=== PATIENT | male | born 1960 | race Two or more races ===

== ENCOUNTER 2022-03-15 16:02 | Outpatient (CLI) | payer OTHER, SELFPAY ==
--- NOTE | ~2022-03-15 | CT_ITS ---
EXAMINATION: CT knee LT wo con DATE: 03/15/2022 16:45 INDICATION: Mechanical comp cases of implant at the left knee. TECHNIQUE: High resolution computed tomography (CT) of the left knee was performed without intravenou s contrast. Additional sagittal and coronal reconstructions were performed. Automated exposure contro l and iterative reconstruction technique were employed. The dose-length product was 521.74 mGy-cm. COMPARISON: None FINDINGS: Medial unicompartmental arthroplasty at the left knee. There is no periprosthetic lucency to suggest loosening . No fracture.. There appears to be residual articulation between osteophytes along the lat eral margin of the anterior weightbearing medial femoral condyle at the intercondylar notch and anter omedial aspect of the intercondylar eminence, both of these articular surfaces with associated margin al osteophytes. Osteoarthritis at the lateral compartment with additional severe narrowing of the spa ce between the medial margin of the anterior weightbearing lateral femoral condyle and the lateral ma rgin of the intercondylar eminence. 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 Moder ate-sized knee joint effusion. IMPRESSION: 1. Left knee unicompartmental arthroplasty with regions of moderate to severe joint space narrowing a long portions of each compartment as detailed above. No fracture or evident loosening of the arthropl asty components. 2. Moderate-sized left knee joint effusion. Reviewed, dictated and finalized at location A. E REPORT DEVELOPER IMPRESSION: 1. Left knee unicompartmental arthroplasty with regions of moderate to severe j oint space narrowing along portions of each compartment as detailed above. No f racture or evident loosening of the arthroplasty components. 2. Moderate-sized left knee joint effusion.
== END 2022-03-15 16:03 | disposition home or self-care (01) ==
PROVIDERS: PCP Internal Medicine; Visit Provider Orthopaedic Surgery
DX: T85.698A Other mechanical complication of other specified internal prosthetic devices, implants and grafts, initial encounter (principal); M25.462 Effusion, left knee
CPT/HCPCS: 73700

== ENCOUNTER 2022-03-17 07:51 | Outpatient (CLI) | payer OTHER, SELFPAY ==
--- NOTE | ~2022-03-17 | NM_ITS ---
EXAMINATION: NM bone 3 phase DATE: 03/17/2022 11:42 INDICATION: Mechanical comp cases of implant at the left knee TECHNIQUE: 24.3 mCi Tc-99m HDP by intravenous route. Scintigrams of the bilateral knees were obtaine d in angiographic, blood pool, and delayed phases. COMPARISON: Left knee CT dated 03/15/2022 FINDINGS: Symmetric distribution of activity in both knees on the angiographic phase with no focal hyperemia to suggest inflammation either the setting of fracture or infection. There is a subtle photopenic defec t at the medial compartment of the left knee corresponding to a unicompartmental arthroplasty as seen on CT imaging. There is increased uptake at the medial compartment of the right knee and at the medi al and patellofemoral compartment of the left knee. IMPRESSION: 1. Increased uptake in all 3 compartments of the left knee including associated with the medial unic ompartmental arthroplasty. Although differential would include loosening does not appear to be associ ated periprosthetic lucency on the CT images to suggest this and there do appear to be regions of cyn sely articulating bone along the margins of the arthroplasty which suggests as in the other compartme nts is most likely degenerative in etiology. Reviewed, dictated and finalized at location A. PRIVATE DUTY IMPRESSION: 1. Increased uptake in all 3 compartments of the left knee including associate d with the medial unicompartmental arthroplasty. Although differential would in clude loosening does not appear to be associated periprosthetic lucency on the CT images to suggest this and there do appear to be regions of closely articula ting bone along the margins of the arthroplasty which suggests as in the other compartments is most likely degenerative in etiology.
== END 2022-03-17 07:52 | disposition home or self-care (01) ==
LOC: ANHIMG 07:54
PROVIDERS: PCP Internal Medicine; Visit Provider Orthopaedic Surgery
DX: T85.698A Other mechanical complication of other specified internal prosthetic devices, implants and grafts, initial encounter (principal); T84.039A Mechanical loosening of unspecified internal prosthetic joint, initial encounter
CPT/HCPCS: 78315; A9561

== ENCOUNTER 2022-04-12 10:50 | Outpatient (CLI) | payer OTHER, SELFPAY ==
--- NOTE | ~2022-04-12 | US_ITS ---
EXAMINATION: US knee asp inj w image LT DATE: 04/12/2022 13:55 INDICATION: Left knee fluid TECHNIQUE: The procedure including the risks and benefits was discussed with the patient. Risks discu ssed included bleeding and infection. The patient understood the risks and agreed to proceed. The sk in overlying the suprapatellar pouch of the left knee was prepped and draped in usual sterile fashion . Anesthetic was administered with 1% lidocaine subcutaneously. An 18 gauge spinal needle was advan gladis under continuous ultrasound observation into the suprapatellar pouch of the left knee. The inner stylette was removed and fluid was aspirated. The needle was removed and the entry site was cleaned and dressed. Post procedure ultrasound demonstrated no hemorrhage. FINDINGS: Ultrasound images demonstrate a moderate amount of fluid in the left suprapatellar pouch an d the needle advanced into the fluid collection. IMPRESSION: 1. Successful Ultrasound-guided left knee joint aspiration yielding 35 mm of initially clear yellowis h and progressively more cloudy reddish-yellow fluid. Reviewed, dictated and finalized at location A. SPECIALIST IMPRESSION: 1. Successful Ultrasound-guided left knee joint aspiration yielding 35 mm of in itially clear yellowish and progressively more cloudy reddish-yellow fluid.
[2022-04-12 17:33] LABS: Appearance Synovial Fluid Bloody (Clear); Color Synovial Fluid Red (Colorless); Source Synovial Fluid Synovial fluid
[2022-04-12 17:36] LABS: Lymphocytes Synovial Fluid 61 %; Monocytes Synovial Fluid 39 %
== END 2022-04-12 10:51 | disposition home or self-care (01) ==
PROVIDERS: PCP Internal Medicine; Visit Provider Orthopaedic Surgery
DX: T84.033A Mechanical loosening of internal left knee prosthetic joint, initial encounter (principal)
CPT/HCPCS: 20611; 87070; 87075; 87205; 89051

== ENCOUNTER 2022-04-19 09:31 | Outpatient (CLI) | payer OTHER, SELFPAY ==
--- NOTE | ~2022-04-19 | US_ITS ---
Renal-Bladder ultrasound Clinical History: Hypertension Technique: Real-time sonographic imaging of the kidneys and urinary bladder was performed. Findings: The right kidney measures 10.7 cm in length and the left kidney measures 11.9 cm. There is no hydronephrosis or definite renal calculus identified. Renal cortical echogenicity is within normal limits. No solid renal mass lesion is identified. The urinary bladder is moderately distended at the time of this exam. No intraluminal echoes are iden tified. No abnormal wall thickening is seen. Prostate gland probably enlarged. Impression: Unremarkable ultrasound of the kidneys and urinary bladder. Probable enlarged prostate gland. Reviewed, dictated and finalized at location . SER HAND Impression: Unremarkable ultrasound of the kidneys and urinary bladder. Probable enlarged prostate gland.
== END 2022-04-19 09:32 | disposition home or self-care (01) ==
LOC: ANHIMG 09:33
PROVIDERS: PCP Internal Medicine; Visit Provider Internal Medicine
DX: I10 Essential (primary) hypertension (principal)
CPT/HCPCS: 76775

== ENCOUNTER 2022-06-05 11:49 | Outpatient (CLI) | payer OTHER, SELFPAY ==
--- NOTE | 2022-06-05 12:44 | ECG_ITS ---
Measurements Intervals [place] Rate: 63 P: 47 HI: 141 QRS: 11 QRSD: 104 T: 6 QT: 394 QTc: 405 Interpretive Statements SINUS RHYTHM POSSIBLE LEFT ATRIAL ENLARGEMENT [-0.1mV P WAVE IN V1/V2] POSSIBLE LEFT VENTRICULAR HYPERTROPHY [VOLTAGE CRITERIA PLUS LAE OR QRS WIDENING] NONSPECIFIC ST changes NO PREVIOUS ECG AVAILABLE FOR COMPARISON Electronically Signed On 06-06-2022 11:21:50 FOREST AIDE by Sandra Buck M.D.
[2022-06-05 14:41] LABS: Basophils Percent Auto 0.6 % (0.2-1.2); Eosinophils Absolute Auto 0.2 K/mm3 (0-0.3); Eosinophils Percent Auto 2.5 % (0-4.4); Hematocrit 41.4 % (42.0-52.0); Hemoglobin 13.6 g/dL (14.0-18.0); Immature Granulocyte Absolute 0.02 K/mm3 (0.00-0.031); Immature Granulocyte Percent A 0.3 % (0-0.5); Lymphocytes Absolute Auto 2.64 K/mm3 (0.9-3.2); Lymphocytes Percent Auto 38.9 % (18.3-44.2); Mean Corpuscular HGB Conc 32.9 g/dl (32-36); Mean Corpuscular Hemoglobin 28.6 pg (26-34); Mean Corpuscular Volume 87.2 fl (80-100); Mean Platelet Volume 10.2 fl (7.4-10.4); Monocytes Absolute Auto 0.4 K/mm3 (0.1-0.6); Monocytes Percent Auto 6.3 % (2.6-8.5); Neutrophils Absolute Auto 3.5 K/mm3 (1.3-6.7); Neutrophils Percent Auto 51.4 % (45.5-73.1); Platelet Count Result 257 k/mm3 (150-375); Red Blood Count 4.75 M/mm3 (4.6-6.20); White Blood Count 6.8 K/mm3 (4.5-10.0)
[2022-06-05 14:53] LABS: Albumin Level 4.3 g/dL (3.5-5.1)
[2022-06-05 14:55] LABS: Anion Gap 6 mmol/L (8-16); Blood Urea Nitrogen 14 mg/dL (9-20); Calcium 8.4 mg/dL (8.4-10.2); Carbon Dioxide 32 mmol/L (22-30); Chloride 102 mmol/L (98-107); Estimated Glomerular Filt Rate > 60; Glucose 92 mg/dL (65-110); Potassium 3.1 mmol/L (3.4-5.0); Sodium 140 mmol/L (137-145)
[2022-06-05 15:13] LABS: Urine Cotinine NEGATIVE
[2022-06-05 18:29] LABS: Hemoglobin A1C 5.9 % (<5.7)
== END 2022-06-05 11:50 | disposition home or self-care (01) ==
LOC: ANHSURGERY 11:53
PROVIDERS: Anesthesiology; PCP Internal Medicine; Visit Provider Orthopaedic Surgery
DX: T84.018A Broken internal joint prosthesis, other site, initial encounter (principal); Z79.899 Other long term (current) drug therapy; Z01.818 Encounter for other preprocedural examination
CPT/HCPCS: 80048; 80307; 82040; 83036; 85025; 86850; 86900; 86901; 87081; 93005

== ENCOUNTER 2022-06-14 02:00 | Day surgery (SDC) | payer OTHER, SELFPAY ==
--- NOTE | 2022-06-05 11:58 | PC.NURSE ---
PRE-OP INSTRUCTIONS, PLEASE READ CAREFULLY Report to the Outpatient Waiting Room, entrance under the green pavilion located off [facility], at time _0600_ on date _06/14/22_. Planned Procedure Time: _0730_. PACK A SMALL OVERNIGHT BAG AND LEAVE IN THE CAR ALONG WITH YOUR WALKER Time changes happen often and if your time is changed the preop area will call you the afternoon before. - You and your visitor will be asked to self-screen and do not enter if you have any COVID symptoms. - Only one visitor is requested with a max of two and NO children visitors are allowed at this time. - The patient visitor may be requested to leave or wait in car when not with patient due to distancing restrictions. - A mask is optional within the hospital at this time. -VISITING HOURS 8AM-8PM Patients may have clear liquids (water, carbonated beverages, clear teas, apple juice) until 3 hours prior to surgery (0430 AM) with a maximum of 20 ounces. - No food from midnight until time of surgery Take the following medications with a SIP of water the morning of surgery: _AMLODIPINE, NEBIVOLOL_ DO NOT STOP ANY OF YOUR OTHER PRESCRIPTION MEDICATIONS PRIOR TO SURGERY ?EXCEPT THE FOLLOWING Medications to discontinue per physician __NONE__, Date to take last dose Please no make-up, nail amharic, hairspray, perfume, deodorant, or body powder the day of surgery. No jewelry (including any body piercings) or valuables the day of surgery, leave them at home. Please take a shower or bath the night before, or the morning of, surgery with an antibacterial soap. Wear comfortable, loose fitting clothing. - Jewelry must be removed prior to entering the operating room. Rings and piercings that are not removed may be cut off. - The hospital will not accept responsibility for valuables. - Please leave all valuables, including medications, at home the day of surgery. If you are going home after surgery, a licensed power truck driver must drive you home. - NO public transportation without another adult if you receive anesthesia. - We recommend that an adult stay with you for 24 hours following discharge. - We also recommend that you do not drive, make important decision, drink alcoholic beverages, or take any drugs that were not prescribed by your health care provider for at least 24 hours after your discharge time. Follow any additional instructions given to you from your surgeon. If you or anyone in your household have experienced Covid symptoms in the past week, please notify your surgeon or the nurse liaison at the phone number below for possible testing. Instructions given to _PATIENT_and asked if any additional questions and then verbalized understanding. Patient advised to call surgeon office or pre surgery nurse liaison [phone] if any additional questions.
[2022-06-05 12:14] VITALS: BP 186/82; PULSE 64; RESP 20; TEMP 37; O2SAT 100; BMI 32.0
--- NOTE | 2022-06-09 14:56 | PM.IMHP ---
H&P: HPI History of Present Illness Date/Time: 06/09/22 14:56 Chief Complaint: The patient is a 62-year-old male sees Dr. Downey regarding his left knee. 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 The patient suffered an injury to the left tibia which required unicompartmental knee arthroplasty after developing osteoarthritis. Over time the patient has developed increasingly worsening pain and dysfunction. Denies any new trauma or injury no erythema heat no effusion no fevers chills night sweats no evidence infection. Workup for infection has been negative recently. X-rays at this time show subsidence of the tibial portion of the prosthesis the patient has aching pain here medially worse with activity mildly relieved by rest. Despite conservative measures on his own including ice activity modification and anti-inflammatories symptoms continue. The patient clearly has failure the implant and has increasingly worsening varus deformity and inability to stand or walk for long periods. At this point the patient has discussed further treatment options in detail with Dr. Downey he would like to proceed with revision to a total knee arthroplasty of his left knee. Review of Systems Review of Systems: Ten point review of systems otherwise negative [facility] Past Medical History Medical History Essential hypertension Mixed hyperlipidemia Seizure disorder Family History Family History Mother Hypertension Father Hypertension Social History Social History Smoking status: Never smoker Second hand tobacco smoke exposure: No Additional smoking assessment comments: PT DENIES ALL FORMS OF TOBACCO USE Alcohol intake: never Substance use: never Substance use type: does not use Living arrangements: with family Spiritual care concerns: No Meds Home Medications and Allergies Home Medications Medication Instructions Recorded Confirmed Type nebivolol 5 mg tablet (Bystolic) 5 mg PO DAILY #90 tabs 08/16/20 06/05/22 Rx atorvastatin 20 mg tablet 20 mg PO DAILY #90 tabs 10/18/20 06/05/22 Rx lisinopril 20 1 tablet PO BID #180 tabs 10/19/20 06/05/22 Rx mg-hydrochlorothiazide 12.5 mg tablet amlodipine 10 mg tablet (Norvasc) 10 mg PO DAILY #30 tabs 01/04/23 02/13/23 Rx Allergies Allergy/AdvReac Type Severity Reaction Status Date / Time No Known Allergies Allergy Verified 06/05/22 12:12 Exam Narrative: on exam the patient is noted be a well-developed well-nourished male in no acute distress alert oriented x3. Normal mood and affect. He has noted be 5 ft 9 in tall 223 lb with a BMI of 32.9. Hearing and vision are intact. Respiratory is good no distress. Pulse regular rate and rhythm. Abdomen benign. Extremities show the patient's left knee be tender along the medial joint line with varus deformity. Range of motion is 5-110 degrees with some crepitation through the arc of motion. Knee cap tracks well knee joint appears to be otherwise stable strength is 5 5. There is no erythema heat no effusion no signs of infection. Neurovascular is intact. Skin is intact. X-rays are as above. Central nervous system within normal limits. Assessment and Plan Assessment and plan (1) Pain due to unicompartmental arthroplasty of knee: Code(s): T84.84XA - Pain due to internal orthopedic prosthetic devices, implants and grafts, initial encounter; Z96.659 - Presence of unspecified artificial knee joint Status: Acute Plan the patient has a painful, failed left unicompartmental arthroplasty of the left knee. The patient at this point has discussed risks benefits limitations and alternatives of surgery in great detail with Dr. Downey he has now reached proceed with he
[2022-06-14] VITALS (11 sets, daily range): BP systolic 157–190; BP diastolic 61–90; PULSE 73–91; RESP 15–20; TEMP 36.4–37.1; O2SAT 97–100
--- NOTE | ~2022-06-14 | XR_ITS ---
EXAMINATION: XR surgery orthopedic DATE: 06/14/2022 09:13 INDICATION: Intraoperative evaluation following left total knee arthroplasty. TECHNIQUE: 4 views of the left knee were obtained during revision left total knee arthroplasty. COMPARISON: CT dated 03/15/2022 FINDINGS: There are old healed diaphyseal fracture deformities of the left tibia and fibula. Initial images dem onstrate removal of the prior medial unicompartmental arthroplasty components and placement of new fe moral and tibial components for a total knee arthroplasty. There is approximately 7 degree valgus ang ulation of the tibia relative to the narrow stem of the tibial component. The tibial component is rep laced and appears in expected position on the final 2 images. On the initial 3 images the patella is rotated and displaced laterally but appears in expected position with change of patellar resurfacing. There is minimal hyperextension at the knee joint which remains within limits of normal ligamentous laxity on the final crosstable lateral image. No acute fractures identified. Expected intra-articular , intramedullary and subcutaneous gas. IMPRESSION: 1. Intraoperative images demonstrating revision of total knee arthroplasty as detailed above. See pro cedure note for further detail. Reviewed, dictated and finalized at location A. NE PHOTOGRAPHER IMPRESSION: 1. Intraoperative images demonstrating revision of total knee arthroplasty as d etailed above. See procedure note for further detail.
--- NOTE | ~2022-06-14 | XR_ITS ---
EXAMINATION: [id number] DATE: 06/14/2022 10:23 INDICATION: Postoperative evaluation following left total knee arthroplasty. TECHNIQUE: Anteroposterior and lateral views of the left knee were obtained. COMPARISON: Intraoperative images on 06/14/2022 FINDINGS: Interval completion with cementing of the left total knee arthroplasty with patellar resurfacing quyen mao appears well seated and in near anatomic alignment. No fractures identified. Expected postoperativ e subcutaneous and intra-articular gas. IMPRESSION: 1. Left total knee arthroplasty, negative for postoperative purposes. Reviewed, dictated and finalized at location A. ORTER
--- NOTE | 2022-06-14 06:37 | WPDANESEPPF ---
Anes - Initial Pre Proc Eval Procedure: Operation Date: 06/14/22 07:30 Proposed Procedures p Revision Left Total Knee Arthroplasty - Wilver Downey MD Date/Time: 06/14/22 06:37 Surgeon: Wilver Downey MD Pre Op Diagnosis: failed left partial knee arthroplasty Patient Data Age: 62 Gender: M Height: 1.78 m Weight: 101.3 kg Last Vital Signs Temp 37.0 C 06/05/22 12:14 Pulse 64 06/05/22 12:14 Resp 20 06/05/22 12:14 BP 186/82 H 06/05/22 12:14 Pulse Ox 100 06/05/22 12:14 O2 Del Method Room Air 06/05/22 12:14 Allergies Allergy/AdvReac Type Severity Reaction Status Date / Time No Known Allergies Allergy Verified 06/05/22 12:12 Home Medications Medication Instructions Recorded Confirmed Type nebivolol 5 mg tablet (Bystolic) 5 mg PO DAILY #90 tabs 08/16/20 06/14/22 Rx atorvastatin 20 mg tablet 20 mg PO DAILY #90 tabs 10/18/20 06/14/22 Rx lisinopril 20 1 tablet PO BID #180 tabs 10/19/20 06/14/22 Rx mg-hydrochlorothiazide 12.5 mg tablet amlodipine 10 mg tablet (Norvasc) 10 mg PO DAILY #30 tabs 04/26/22 06/14/22 Rx Patient hx anesthesia problems: none Family hx anesthesia problems: none Results Review: All pre-operative results and documents have been reviewed as part of the pre-operative evaluation. [facility] Past Medical History Medical History Essential hypertension Mixed hyperlipidemia Seizure disorder Surgical History Surgical History History of knee surgery Family History Family History Mother Hypertension Father Hypertension Social History Social History Smoking status: Never smoker Second hand tobacco smoke exposure: No Additional smoking assessment comments: PT DENIES ALL FORMS OF TOBACCO USE Alcohol intake: never Substance use: never Substance use type: does not use Living arrangements: with family Spiritual care concerns: No Anes - Eval Final PreProcedure Day of Procedure 06/14/22 06:37 Patient weight: obese Heart: regular rate and rhythm Lungs: clear to auscultation Airway: Mallampati scale class II Neurological: alert and oriented Last oral intake: >/= 8 hours ASA classification: III Emergent: no Anesthetic plan: proceed Anesthesia type and monitoring: general LMA and standard monitoring Results Review: All pre-operative results and documents have been reviewed as part of the pre-operative evaluation. Informed Consent: The patient's anesthetic plan and its attendant risks and benefits were discussed with the patient/family/POA. Questions were solicited and answers provided to the satisfaction of the patient/family/POA.
[2022-06-14] MEDS: ACETAMINOPHEN 500 MG TABLET 1000 MG PO (06:53)
--- NOTE | 2022-06-14 06:54 | WPDHPUPDATE1 ---
History and Physical Update Update Date/Time: 06/14/22 06:54 History and Physical has been reviewed, including an updated exam of the patient. There are NO changes in the patient's condition. Risks, benefits, and alternatives have been discussed and questions answered. Patient agrees to proceed with procedure.
[2022-06-14] MEDS: TRANEXAMIC ACID 1,000MG/ISO100 1,000 MG/100 ML BAG 200 MG IVPB (06:55)
[2022-06-14] MEDS: LACTATED RINGERS 1,000 ML 30 ML IV CONT ×2 (06:55→10:09)
--- NOTE | 2022-06-14 07:21 | WPDANESPNB ---
Anes - Peripheral Nerve Block Date/Time: 06/14/22 07:21 I have discussed with the patient/family/POA the placement of a peripheral nerve block for post-operative pain management, including associated risks, benefits, complications, and side effects. Alternative methods of post-operative analgesia were detailed. Questions were solicited and answers provided to the satisfaction of the patient/family/POA. Time-Out: A pre-procedural Time-Out was completed immediately before starting the procedure and confirmed: Patient Identification, Site, Procedure, Patient Position and the Availability of Requisite Equipment. Clinical Indications: Acute post-operative pain management requested by the operative surgeon. Nerve Block Insertion Note Anes-nerve block: femoral left Patient position: supine Skin prep: chlorhexidine Needle: 22 gauge, stimulating, insulated echogenic needle. Needle length: 50 mm Technique: nerve stimulation lost at (mA) (0.35) Injectate: bupivacaine 0.5% with epi 5 mcg/ml (no epi) Observations: tolerated well Complications: none Procedure start time:: 714 Procedure end time:: 718
[2022-06-14] MEDS: ceFAZolin 2 GM/D5W 50 ML 2 GM/50 ML BAG IVPB ×3 (07:23→23:10)
[2022-06-14] MEDS: ceFAZolin SODIUM 1 GM VIAL 2 GM IV PUSH (09:25)
[2022-06-14] MEDS: GENTAMICIN BONE CEMENT REFOBACIN 1 EACH TOPICAL (09:34)
--- NOTE | 2022-06-14 09:38 | W.PM.PROC2 ---
Procedure Note - Detailed Date of Procedure 06/14/22 Pre-op Diagnosis failed left partial knee arthroplasty Post-op Diagnosis Same Procedure Performed Revision Total Left Knee Surgeon Wilver Downey MD Commercial Airplane Pilot Dominick Ayala Anesthesia General Description of Procedure The patient was brought to the operating room. General anesthetic was administered. Placed on the operating table and sterilely prepped and draped in usual manner. A longitudinal incision was made. Tourniquet inflated to 300 mmHg for a total of [95] minutes. Dissection carried down to the fascia. Medial parapatellar incision was made and the patella subluxated laterally. Patella cut from [27] to [17] mm and sized for a [34] mm button. The tibia cut perpendicular to the long axis, removing the tibial component. This left a bit of a hole medially. The femur cut in 5 degrees of valgus, removing the femroal component. A [70] femur trialed. [75] tibia was felt to fit the best. The soft tissue balanced, hemostasis obtained. All [address], [75] tibia, with a 40 mm Stem and 5mm medial wedge. A [70] femur, [34] mm patella, and [14] mm poly. Motion was 0-125 degrees with good stablility in flexion and extension. The wound was closed with #2 vicryl, 2-0 Vicryl and john. Implants [employer] Femur 70mm Tibia 75mm, 40 mm stem, 5mm medial wedge Estimated Blood Loss 200 Drains No Packing No Pathology None sent Complications No immediate complications Condition Stable Disposition PACU
[2022-06-14] MEDS: fentaNYL CITRATE INJ (*CRX) 100 MCG/2 ML VIAL 25 MCG IV PUSH ×6 (10:27→11:18)
--- NOTE | 2022-06-14 10:37 | SUR.PHASEI ---
[address] foy of bp 180/80, pt came in a little higher in pre-op, took some bp meds this morning. not going to treat at this time, pt will be going to floor and will resume the rest of his home meds.
--- NOTE | 2022-06-14 11:35 | ADMGEN ---
This patient, Hilario Terrazas, was admitted to Medical Room 249-01. Patient/family oriented to hospital policies and general routines including ID bracelet, bed and alarms, visiting hours, pain management, procedures, bathroom and other care routines, personal items, smoking policy, room service/diet, and visiting hours. Information on how to activate the Rapid Response Team has been discussed. Patient/Family are encouraged to report perceived risks to care and to ask questions if they do not understand what they are told or what they should do.
[2022-06-14] MEDS: HYDROcodone/acetaminophen (*CRX) 5-325 MG TABLET 1 TAB PO ×2 (13:52→23:10)
[2022-06-14] MEDS: CYCLOBENZAPRINE HCL 10 MG TABLET PO (13:52)
[2022-06-14] MEDS: SODIUM CHLORIDE 0.9% IV 1,000 ML 125 ML IV CONT (13:53)
[2022-06-14] MEDS: ONDANSETRON INJ 4 MG/2 ML VIAL IV PUSH (13:53)
--- NOTE | 2022-06-14 15:08 | P.OPB_ITS ---
Procedure Note - Brief Procedure Note - Brief Date of procedure: 06/14/22 Pre-op diagnosis: failed left partial knee arthroplasty Postop diagnosis same status post revision left total knee arthroplasty. Procedure performed: Revision left total knee arthroplasty. Description of procedure: On June 14, 2022 the patient was taken the operating room I entered the operating room at approximately 7:30 a.m.. An assisted with positioning the patient on operating table placement of a tourniquet with a sterile prep and drape of the patient's left lower extremity once anesthesia was underway. Dr. Downey then entered the room to commence with the procedure during the operation I assisted with wound retraction hemostasis with suction Bovie positioning of the left lower extremity and implant placement and cement removal once the procedure was completed. Once Dr. Downey finished his portion I then irrigated the wound thoroughly the superficial layers followed by placement of Surgicel powder and use of Bovie cautery to obtain final hemostasis. I then proceeded with closure of the deep capsule the knee with 2. Vicryl 2. Quill type suture. I then again irrigated the superficial layers of the wound followed by closure of the fatty layer and the skin with 2-0 Vicryl and 2 type Quill suture with john to close the surface of the skin. I then applied a sterile dressing. I then assisted with transfer the patient from the operating table to the stretcher for transport to the recovery room patient was in good condition without intraoperative complication. I exited the room at 10:00 a.m.. Total bl ood loss was about 150 cc Surgeon: Surgeon Wilver Downey MD 1st assistant manager airside operations Dominick Ayala PA-c
[2022-06-14] MEDS: RIVAROXABAN 10 MG TABLET PO (16:47)
[2022-06-14] MEDS: CELECOXIB 200 MG CAPSULE PO (16:47)
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
[2022-06-14] MEDS: SENNA/DOCUSATE SODIUM TABLET 2 TAB PO (20:45)
[2022-06-15] VITALS: BP 165/60; PULSE 86; RESP 17; TEMP 36.9; O2SAT 100
[2022-06-15 03:27] VITALS: BP 163/59; PULSE 88; RESP 18; TEMP 37.1; O2SAT 100
[2022-06-15] MEDS: ceFAZolin 2 GM/D5W 50 ML 2 GM/50 ML BAG IVPB (06:00)
[2022-06-15 06:03] LABS: Basophils Percent Auto 0.1 % (0.2-1.2); Eosinophils Percent Auto 0.2 % (0-4.4); Hematocrit 29.2 % (42.0-52.0); Hemoglobin 9.7 g/dL (14.0-18.0); Immature Granulocyte Absolute 0.03 K/mm3 (0.00-0.031); Immature Granulocyte Percent A 0.3 % (0-0.5); Lymphocytes Absolute Auto 1.69 K/mm3 (0.9-3.2); Lymphocytes Percent Auto 17.7 % (18.3-44.2); Mean Corpuscular HGB Conc 33.2 g/dl (32-36); Mean Corpuscular Hemoglobin 28.8 pg (26-34); Mean Corpuscular Volume 86.6 fl (80-100); Mean Platelet Volume 10.2 fl (7.4-10.4); Monocytes Absolute Auto 1.2 K/mm3 (0.1-0.6); Monocytes Percent Auto 12.8 % (2.6-8.5); Neutrophils Absolute Auto 6.6 K/mm3 (1.3-6.7); Neutrophils Percent Auto 68.9 % (45.5-73.1); Platelet Count Result 204 k/mm3 (150-375); Red Blood Count 3.37 M/mm3 (4.6-6.20); White Blood Count 9.5 K/mm3 (4.5-10.0)
[2022-06-15] MEDS: HYDROcodone/acetaminophen (*CRX) 5-325 MG TABLET 1 TAB PO (06:12)
[2022-06-15 06:19] LABS: Anion Gap 5 mmol/L (8-16); Blood Urea Nitrogen 20 mg/dL (9-20); Calcium 7.3 mg/dL (8.4-10.2); Carbon Dioxide 27 mmol/L (22-30); Chloride 101 mmol/L (98-107); Estimated CRCL calculation 57 ml/min; Estimated Glomerular Filt Rate > 60; Glucose 146 mg/dL (65-110); Potassium 3.3 mmol/L (3.4-5.0); Sodium 133 mmol/L (137-145)
--- NOTE | 2022-06-15 08:02 | PM.IMPN ---
Progress Note: A&P Assessment and Plan (1) S/P total knee arthroplasty: Code(s): Z96.659 - Presence of unspecified artificial knee joint Status: Acute Assessment and Plan: Postop day 1 from left knee arthroplasty, management per surgery team On Xarelto at home, currently being held Monitor hemoglobin daily, 13.6 preop, 9.7 postop Would recheck a CBC in 1 week (2) Essential hypertension: Code(s): I10 - Essential (primary) hypertension Status: Acute Assessment and Plan: Continue home medications, hydralazine as needed, suspect systolic elevated blood pressure is due to pain (3) Mixed hyperlipidemia: Code(s): E78.2 - Mixed hyperlipidemia Status: Acute Assessment and Plan: Continue home statin, check fasting lipid panel tomorrow (4) Peripheral neuropathy: Code(s): G62.9 - Polyneuropathy, unspecified Status: Acute Assessment and Plan: Appears to be on no medications at home, receiving Flexeril and oxycodone here as well as Celebrex (5) Seizure disorder: Code(s): G40.909 - Epilepsy, unspecified, not intractable, without status epilepticus Status: Acute Assessment and Plan: Distant past, no recent seizures, monitor off AEDs Plan DVT prophylaxis with SCDs, Xarelto at discharge GI prophylaxis not indicated Code status full code Subjective Date/time seen: 06/15/22 08:02 Interval history: No overnight events noted. No chest pain or shortness of breath. No nausea, vomiting or diarrhea. No fevers or chills. Some little swelling of the left knee with some blood. Had a bowel movement this morning, good p.o. intake. Worked well with OT, eager to go home. Review of Systems Review of Systems: 12 point review of systems was assessed and was negative except as noted in the HPI Exam Narrative: General: No acute distress, alert and oriented per baseline HEENT: Atraumatic, normocephalic, mucous membranes moist CV: Regular rate and rhythm, S1, S2 Lungs: Clear to auscultation bilaterally, no rales or crackles noted, no wheezes, good air entry Abdomen: Soft, nontender, nondistended Extremities: Normal to inspection, left knee wrapped, some blood noted on the bandage, effusion, no erythema Skin: No rashes noted, no lesions or wounds seen Psych: Euthymic, normal affect Objective Data Vital Signs Vital Signs: Vital Signs - 24 hr 06/14/22 10:15 06/14/22 10:30 06/14/22 10:45 Temperature 97.5 F L Pulse Rate 89 76 75 Respiratory Rate 15 20 20 Blood Pressure 181/90 H 181/84 H 185/81 H Pulse Oximetry 100 100 100 Oxygen Delivery Simple Face Mask Simple Face Mask Simple Face Mask Oxygen Flow Rate 8 8 8 06/14/22 11:00 06/14/22 11:15 06/14/22 11:35 Temperature Pulse Rate 77 77 Respiratory Rate 15 20 20 Blood Pressure 162/80 H 162/73 H Pulse Oximetry 99 97 98 Oxygen Delivery Room Air Room Air Room Air Oxygen Flow Rate 06/14/22 11:57 06/14/22 13:23 06/14/22 13:06 Temperature 98.5 F 98.5 F Pulse Rate 77 78 Respiratory Rate 18 Blood Pressure 159/62 H 167/78 H Pulse Oximetry 98 100 Oxygen Delivery Room Air Oxygen Flow Rate 06/14/22 15:29 06/14/22 21:34 06/14/22 20:00 Temperature 98.8 F 98.4 F Pulse Rate 73 91 Respiratory Rate 18 17 Blood Pressure 157/72 H 162/61 H Pulse Oximetry 100 100 Oxygen Delivery Room Air Oxygen Flow Rate 06/15/22 00:00 06/15/22 03:27 Temperature 98.5 F 98.7 F Pulse Rate 86 88 Respiratory Rate 17 18 Blood Pressure 165/60 H 163/59 H Pulse Oximetry 100 100 Oxygen Delivery Oxygen Flow Rate Intake/Output Intake/Output: Intake & Output 06/12/22 06/13/22 06/14/22 06/15/22 23:59 23:59 23:59 23:59 Intake Total 2750 600 Output Total 800 300 Balance 1950 300 Meds/Results Medications: Active Medications Generic Name Dose Route Start Last Admin Trade Name Freq PRN Reason Stop Dose Admin Hydroc
[2022-06-15] MEDS: CELECOXIB 200 MG CAPSULE PO (09:48)
[2022-06-15] MEDS: ATORVASTATIN 20 MG TABLET PO (09:48)
[2022-06-15] MEDS: SENNA/DOCUSATE SODIUM TABLET 2 TAB PO (09:48)
[2022-06-15] MEDS: amLODIPine BESYLATE 5 MG TABLET 10 MG PO (09:49)
[2022-06-15] MEDS: lisinopriL 20 MG TABLET PO (09:49)
[2022-06-15 09:50] VITALS: PULSE 93
[2022-06-15] MEDS: NEBIVOLOL HCL 5 MG TABLET PO (09:50)
[2022-06-15] MEDS: hydroCHLOROthiazide 12.5 MG CAPSULE PO (09:55)
[2022-06-15] MEDS: polyethylene glycoL 3350 17 GM POWD.PACK PO (09:55)
[2022-06-15] MEDS: HYDROcodone/acetaminophen (*CRX) 5-325 MG TABLET 2 TAB PO (10:05)
--- NOTE | 2022-06-15 10:22 | P.PNAN_ITS ---
Anes - Prog Note Post-Op Date/Time: 06/15/22 10:22 Cardiovascular status: normal Respiratory status: normal Airway patency: baseline Mental status: baseline Post-Op hydration status: normal Vital Signs: Last Vital Signs Temp 37.1 C 06/15/22 03:27 Pulse 93 06/15/22 09:50 Resp 18 06/15/22 03:27 BP 163/59 H 06/15/22 03:27 Pulse Ox 100 06/15/22 03:27 O2 Del Method Room Air 06/14/22 20:00 O2 Flow Rate 8 06/14/22 10:45 Pain Score (VAS): 0 I/O: Intake & Output 06/14/22 06/15/22 06/15/22 23:59 07:59 15:59 Intake Total 560 600 240 Output Total 800 300 Balance -240 300 240 Laboratory Tests 06/15/22 05:19 06/15/22 05:18 06/15/22 06/15/22 05:18 05:19 WBC 9.5 RBC 3.37 L Hgb 9.7 L D Hct 29.2 L MCV 86.6 MCH 28.8 MCHC 33.2 RDW 14.0 Plt Count 204 MPV 10.2 Immature Gran % (Auto) 0.3 Neut % (Auto) 68.9 Lymph % (Auto) 17.7 L [place] % (Auto) 12.8 H Eos % (Auto) 0.2 Baso % (Auto) 0.1 L Lymph # (Auto) 1.69 [place] # (Auto) 1.2 H Eos # (Auto) 0.0 Baso # (Auto) 0.0 Abs Immat Gran (auto) 0.03 Absolute Neuts (auto) 6.6 Absolute Nucleated RBC 0.0 Nucleated RBC % 0.0 Sodium 133 L Potassium 3.3 L Chloride 101 Carbon Dioxide 27 Anion Gap 5 L BUN 20 Creatinine 1.40 H Estim Creat Clear Calc 57 Estimated GFR > 60 Glucose 146 H Calcium 7.3 L Microbiology 06/14/22 07:54 Knee Left Gram Stain - Final Post-procedural complaints: none Patient Feedback: Patient satisfied with anesthetic care.
[2022-06-15 12:36] VITALS: BP 156/62; PULSE 85; RESP 18; TEMP 37; O2SAT 98
--- NOTE | 2022-06-15 12:50 | PM.PNORT ---
Progress Note: A&P Assessment and Plan (1) S/P total knee arthroplasty: Code(s): Z96.659 - Presence of unspecified artificial knee joint Status: Acute Plan postop day 1 patient is stable doing well will have physical therapy course this afternoon the discharge to home. Patient will follow-up as an outpatient with Dr. Downey in 2 weeks patient will call the office for any problems difficulties or questions see discharge orders. Subjective Subjective Date/Time Seen: 06/15/22 12:50 Patient is post op day #1 revision TKA, left kne. Having some post op pain but otherwise stable, no post op complications, not taking much pain med, refusing. Tolerating PT. Review of Systems Review of Systems: negative Exam Narrative: Vital signs stable afebrile neurovascular patient is intact wound is clean dry calves benign tolerating p.o. well, up in therapy Objective Data Vital Signs Vital Signs: Vital Signs - 24 hr 06/14/22 13:23 06/14/22 13:06 06/14/22 15:29 Temperature 36.9 C 37.1 C Pulse Rate 78 73 Respiratory Rate 18 18 Blood Pressure 167/78 H 157/72 H Pulse Oximetry 100 100 Oxygen Delivery Room Air 06/14/22 21:34 06/14/22 20:00 06/15/22 00:00 Temperature 36.9 C 36.9 C Pulse Rate 91 86 Respiratory Rate 17 17 Blood Pressure 162/61 H 165/60 H Pulse Oximetry 100 100 Oxygen Delivery Room Air 06/15/22 03:27 06/15/22 09:50 06/15/22 09:45 Temperature 37.1 C Pulse Rate 88 93 Respiratory Rate 18 Blood Pressure 163/59 H Pulse Oximetry 100 Oxygen Delivery Room Air 06/15/22 12:36 Temperature 37.0 C Pulse Rate 85 Respiratory Rate 18 Blood Pressure 156/62 H Pulse Oximetry 98 Oxygen Delivery Intake/Output Intake/Output: Intake & Output 06/12/22 06/13/22 06/14/22 06/15/22 23:59 23:59 23:59 23:59 Intake Total 2750 840 Output Total 800 300 Balance 1950 540 Meds/Results Medications: Active Medications Generic Name Dose Route Start Last Admin Trade Name Freq PRN Reason Stop Dose Admin Hydrocodone Bitart/Acetaminophen 1 tab 06/14/22 12:59 06/15/22 06:12 Hydrocodone/Acetaminophen (*Crx) 5-325 Mg Tablet PO 1 tab Q4H PRN Administration Pain Rated 4-6 Hydrocodone Bitart/Acetaminophen 2 tab 06/14/22 13:00 06/15/22 10:05 Hydrocodone/Acetaminophen (*Crx) 5-325 Mg Tablet PO 2 tab Q6H PRN Administration Pain Rated 7-10 Amlodipine Besylate 10 mg 06/15/22 09:00 06/15/22 09:49 Amlodipine Besylate 5 Mg Tablet PO 10 mg DAILY TEJAL Administration Atorvastatin Calcium 20 mg 06/15/22 09:00 06/15/22 09:48 Atorvastatin 20 Mg Tablet PO 20 mg DAILY TEJAL Administration Celecoxib 200 mg 06/14/22 17:00 06/15/22 09:48 Celecoxib 200 Mg Capsule PO 200 mg BID TEJAL Administration Cyclobenzaprine HCl 10 mg 06/14/22 12:55 06/14/22 13:52 Cyclobenzaprine Hcl 10 Mg Tablet PO 10 mg Q8HR PRN Administration spasms Diphenhydramine HCl 25 mg 06/14/22 12:56 Diphenhydramine Hcl Inj 50 Mg/Ml Vial IV PUSH Q6HR PRN Itching Hydralazine HCl 10 mg 06/15/22 11:09 Hydralazine Hcl 20 Mg/Ml Vial IV PUSH Q8H PRN Blood Pressure - High Hydrochlorothiazide 12.5 mg 06/15/22 09:00 06/15/22 09:55 Hydrochlorothiazide 12.5 Mg Capsule PO 12.5 mg DAILY TEJAL Administration Lisinopril 20 mg 06/15/22 09:00 06/15/22 09:49 Lisinopril 20 Mg Tablet PO 20 mg DAILY TEJAL Administration Naloxone HCl 0.1 mg 06/14/22 13:01 Naloxone Hcl 0.4 Mg/Ml Vial IV PUSH PRN PRN Opiate Reversal Nebivolol 5 mg 06/15/22 09:00 06/15/22 09:50 Nebivolol Hcl 5 Mg Tablet PO 5 mg DAILY TEJAL Administration Ondansetron HCl 4 mg 06/14/22 13:07 06/14/22 13:53 Ondansetron Inj 4 Mg/2 Ml Vial IV PUSH 4 mg Q4H PRN Administration Nausea And Vomiting Oxycodone HCl 2.5 mg 06/14/22 13:08 Oxycodone Hcl (*Crx) 2.5 Mg Tab Ir PO Q4H PRN Pain Rated 1-3 Polyethylene
--- NOTE | 2022-06-15 13:04 | PM.DS ---
DS: Admitting Diagnosis Discharge Date 06/15/2022 Admitting Diagnosis failed Uni arthroplasty left knee with left knee pain discharge diagnosis same status post revision to a total knee arthroplasty left knee. DS: Summary Hospital Course Hospital Course: Patient was taken the operating room on 06/14/2022 left Uni arthroplasty knee implant was removed and revised to a left total knee arthroplasty per Dr. Downey. Postop day 1 the patient was doing well having some postoperative pain but refusing pain medication for the most part was otherwise doing well up and therapy ambulating tolerating p.o. and activity well. Vital signs stable afebrile neurovascular is intact wound dressing clean and dry calves benign. Patient was deemed stable for discharge to home on 06/15/2022. The patient has a follow-up at 2 weeks postop for recheck call the office immediately for any further problems difficulties or questions. Time Spent with Patient Time attestation: Total time spent providing and/or coordinating discharge services: Exam Narrative: Vital signs stable afebrile neurovascularly intact wound dressing clean and dry calves benign ambulating in therapy tolerating p.o. well. Alert oriented x3. Normal mood and affect in no acute distress. DS: Data Data Completed and Pending Labs on day of discharge: Labs from last 24 hours 06/15/22 06/15/22 05:19 05:18 WBC 9.5 RBC 3.37 L Hgb 9.7 L D Hct 29.2 L MCV 86.6 MCH 28.8 MCHC 33.2 RDW 14.0 Plt Count 204 MPV 10.2 Immature Gran % (Auto) 0.3 Neut % (Auto) 68.9 Lymph % (Auto) 17.7 L [place] % (Auto) 12.8 H Eos % (Auto) 0.2 Baso % (Auto) 0.1 L Lymph # (Auto) 1.69 [place] # (Auto) 1.2 H Eos # (Auto) 0.0 Baso # (Auto) 0.0 Abs Immat Gran (auto) 0.03 Absolute Neuts (auto) 6.6 Absolute Nucleated RBC 0.0 Nucleated RBC % 0.0 Sodium 133 L Potassium 3.3 L Chloride 101 Carbon Dioxide 27 Anion Gap 5 L BUN 20 Creatinine 1.40 H Estim Creat Clear Calc 57 Estimated GFR > 60 Glucose 146 H Calcium 7.3 L Preliminary micro results at discharge 06/14/22 07:54 Anaerobic Culture - Preliminary Knee Left Procedures/Treatments: Revision left total knee arthroplasty Discharge Plan Discharge Patient Disposition: Home, Self-Care Discharge Instructions: patient discharged home general diet activity as tolerated weightbearing as tolerated left lower extremity with a walker at all times. Patient will keep the wound clean and dry change dressing daily call for any evidence of drainage or infection. He will start outpatient physical therapy early next week for total knee protocol. . The patient is be discharged on Xarelto 10 mg daily for total postop course of 2 weeks when this is complete he will go to aspirin 325 mg p.o. b.i.d. x1 month. He is also discharged with Moose 7.5 mg 1 tablet every 6 hours p.r.n. severe pain prescriptions were called into the pharmacy from our office. Patient will follow-up 2 weeks postop for staple removal and wound recheck he may resume home meds call for any further problems difficulties or questions. Stand Alone Forms: Avoid NSAIDs, General Discharge Instructions Discharge Medications: New Xarelto 10 mg Tablet 10 mg PO DAILY@1700 Qty: 12 0RF Continued Bystolic 5 mg tablet 5 mg PO DAILY Qty: 90 3RF atorvastatin 20 mg tablet 20 mg PO DAILY Qty: 90 3RF lisinopril-hydrochlorothiazide 20-12.5 mg tablet 1 tablet PO BID Qty: 180 3RF amlodipine [Norvasc] 10 mg tablet 10 mg PO DAILY Qty: 30 0RF Rx Instructions: LAST REFILL UNTIL SEEN
== END 2022-06-15 15:08 | disposition home or self-care (01) ==
LOC: ANHSURGERY 05:52 → ANH2MED 11:34
PROVIDERS: PCP Internal Medicine; Visit Provider Orthopaedic Surgery
PROC: (CPT 27487; principal; 2022-06-14 07:30)
DX: T84.84XA Pain due to internal orthopedic prosthetic devices, implants and grafts, initial encounter (principal); M17.12 Unilateral primary osteoarthritis, left knee; Y83.8 Other surgical procedures as the cause of abnormal reaction of the patient, or of later complication, without mention of misadventure at the time of the procedure; G89.18 Other acute postprocedural pain; I10 Essential (primary) hypertension; E78.2 Mixed hyperlipidemia; G40.909 Epilepsy, unspecified, not intractable, without status epilepticus; G62.9 Polyneuropathy, unspecified; E66.9 Obesity, unspecified; Z68.32 Body mass index [BMI] 32.0-32.9, adult
CPT/HCPCS: 27487; 64447; 36415; 73560; 80048; 85025; 87070; 87075; 87205; 97110; 97116; 97161; 97165; 97530; 97535; 99199; A9270; C1713; C9290; J0171; J0690; J1885; J2250; J2270; J2405; J2795; J3010; J3370; J7030; J7120

== ENCOUNTER 2023-09-07 07:37 | Outpatient (CLI) | payer OTHER, SELFPAY ==
--- NOTE | 2023-09-07 07:50 | ECHO_ITS ---
Patient Info Name: Hilario Terrazas Age: 63 years : 1960 Gender: Male Ht: 70 in Wt: 210 lbs BSA: 2.19 m2 HR: 66 bpm Technical Quality: Fair Exam Date: 09/07/2023 7:56 AM Exam Location: Echo Lab Patient Status: Outpatient Admit Date: 09/07/2023 Staff Ordering Physician: Dilan Johnson DO General Doc: Felipe Wood RDCS Attending Provider: Dilan Johnson DO Referring Physician: Alex FALL; Exam Type: CA echo doppler color flow Study Info Indications I10 - Essential (primary) hypertension Complete two-dimensional, color flow and Doppler transthoracic echocardiogram is performed. Summary 1. Complete two-dimensional, color flow and Doppler transthoracic echocardiogram is performed. 2. Left ventricular chamber dimension is normal. 3. Left ventricular systolic function is normal, estimated at 60-65%. 4. The left ventricular diastolic function is grade I diastolic dysfunction. 5. E/e' 8 is minimally elevated. 6. Left atrial chamber dimension is mildly enlarged. 7. There is mild aortic valve sclerosis. 8. There is trace mitral valve regurgitation. 9. There is trace tricuspid valve regurgitation. 10. No pulmonary hypertension, estimated pulmonary arterial systolic pressure is 30 mmHg. 11. There is mild pulmonic regurgitation. Left Ventricle E/e' 8 is minimally elevated. Left ventricular chamber dimension is normal. Left ventricular systolic function is normal, estimated at 60-65%. The left ventricular diastolic function is grade I diastolic dysfunction. Right Ventricle Right ventricular chamber dimension is normal. Right ventricular systolic function is normal and with normal TAPSE 2.8 cm. Left Atria Left atrial chamber dimension is mildly enlarged. Right Atria Right atrial chamber dimension is normal. Aortic Valve The aortic valve is trileaflet. There is mild aortic valve sclerosis. There is no aortic valve stenosis. There is no aortic valve regurgitation. Pulmonic Valve There is mild pulmonic regurgitation. Mitral Valve There is no mitral valve stenosis. There is trace mitral valve regurgitation. Tricuspid Valve There is trace tricuspid valve regurgitation. No pulmonary hypertension, estimated pulmonary arterial systolic pressure is 30 mmHg. Pericardium/Pleural There is no pericardial effusion. Inferior Vena Cava Normal inferior vena cava with >50% collapse upon inspiration consistent with normal right atrial pressure, 5 mmHg. Aorta The aortic root size at the sinus of Valsalva is normal. Left Ventricular Outflow Tract Name Value Normal LVOT 2D LVOT Diameter 2.0 cm LVOT Doppler LVOT Peak Velocity 117 cm/s LVOT Peak Gradient 5 mmHg LVOT Mean Gradient 3 mmHg LVOT VTI 25 cm LVOT VTI/AV VTI Ratio 0.9 LVOT Stroke Volume 79 ml LVOT CO 4.5 l/min LVOT CI 2.1 l/min/m2 Pulmonic Valve Name Value Normal
== END 2023-09-07 07:38 | disposition home or self-care (01) ==
PROVIDERS: PCP Internal Medicine; Visit Provider Internal Medicine
DX: I10 Essential (primary) hypertension (principal); I35.8 Other nonrheumatic aortic valve disorders; I37.1 Nonrheumatic pulmonary valve insufficiency
CPT/HCPCS: 93306

== ENCOUNTER 2024-01-22 02:18 | Day surgery (SDC) | payer OTHER, SELFPAY ==
[2023-12-31 10:26] VITALS: BMI 31.6
[2024-01-22 09:39] VITALS: BP 159/73; PULSE 105; RESP 18; TEMP 36.2; O2SAT 100; BMI 31.5
[2024-01-22] MEDS: LACTATED RINGERS 1,000 ML 30 ML IV CONT (09:58)
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
[2024-01-22 10:39] VITALS: BP 121/59; PULSE 53; RESP 19; O2SAT 100
[2024-01-22 10:49] VITALS: BP 152/72; PULSE 54; RESP 24; O2SAT 100
[2024-01-22 10:59] VITALS: BP 167/74; PULSE 53; RESP 24; O2SAT 100
== END 2024-01-22 11:10 | disposition home or self-care (01) ==
PROVIDERS: PCP Internal Medicine; Visit Provider Internal Medicine Gastroenterology
PROC: 0DJD8ZZ Inspection of Lower Intestinal Tract, Via Natural or Artificial Opening Endoscopic (ICD-10-PCS; CPT 45378; principal; 2024-01-22 11:00)
DX: Z12.11 Encounter for screening for malignant neoplasm of colon (principal); D12.3 Benign neoplasm of transverse colon; K64.8 Other hemorrhoids; I10 Essential (primary) hypertension; E78.2 Mixed hyperlipidemia; Z98.890 Other specified postprocedural states; Z86.0100 Personal history of colon polyps, unspecified
CPT/HCPCS: 45385; 88305; J2003; J2704; J7120

== ENCOUNTER 2024-04-10 08:34 | Outpatient (CLI) | payer OTHER, SELFPAY ==
[2024-04-10 12:34] LABS: Basophils Percent Auto 0.6 % (0.2-1.2); Eosinophils Absolute Auto 0.2 K/mm3 (0-0.3); Eosinophils Percent Auto 2.6 % (0-4.4); Hematocrit 41.2 % (42.0-52.0); Hemoglobin 13.5 g/dL (14.0-18.0); Immature Granulocyte Absolute 0.02 K/mm3 (0.00-0.031); Immature Granulocyte Percent A 0.3 % (0-0.5); Immature Reticulocyte Fraction 13.7 % (3.0-15.9); Lymphocytes Absolute Auto 2.57 K/mm3 (0.9-3.2); Mean Corpuscular HGB Conc 32.8 g/dl (32-36); Mean Corpuscular Hemoglobin 28.5 pg (26-34); Mean Corpuscular Volume 87.1 fl (80-100); Monocytes Absolute Auto 0.5 K/mm3 (0.1-0.6); Monocytes Percent Auto 7.3 % (2.6-8.5); Neutrophils Absolute Auto 3.6 K/mm3 (1.3-6.7); Neutrophils Percent Auto 52.2 % (45.5-73.1); Platelet Count Result 270 k/mm3 (150-375); Red Blood Count 4.73 M/mm3 (4.6-6.20); Red Cell Distribution Width 13.9 % (11.5-14.5); Reticulocyte Hemoglobin Conten 34.3 pg (28.2-36.6); Reticulocyte Percent 1.19 % (0.7-4.3); Reticulocytes Absolute 0.06 10^6/uL (0.02-0.10)
[2024-04-10 13:12] LABS: Alanine Aminotransferase 25 U/L (6-50); Albumin Level 3.5 g/dL (3.5-5.1); Alkaline Phosphatase 68 U/L (38-126); Anion Gap 2 mmol/L (4-12); Aspartate Amino Transferase 91 U/L (17-59); Bilirubin,Total 0.6 mg/dL (0.2-1.3); Blood Urea Nitrogen 13 mg/dL (9-20); Calcium 8.3 mg/dL (8.4-10.2); Carbon Dioxide 33 mmol/L (22-30); Chloride 105 mmol/L (98-107); Cholesterol 173 mg/dL (0-200); Estimated Glomerular Filt Rate > 60; Glucose 98 mg/dL (65-110); HDL Direct 41 mg/dL; Magnesium 2.3 mg/dL (1.6-2.3); Potassium 3.2 mmol/L (3.4-5.0); Sodium 140 mmol/L (137-145); Triglycerides 164 mg/dL (<150)
[2024-04-10 13:23] LABS: LDL Cholesterol Direct 95 mg/dL
[2024-04-10 13:56] LABS: Creatinine Urine 240.4 mg/dL
[2024-04-10 14:00] LABS: MALB Creatinine Ratio 28.3 mg/g (0-30); Microalbumin Urine Random 68.1 mg/L (0-16.7)
== END 2024-04-10 08:35 | disposition home or self-care (01) ==
LOC: ANHGOSHLAB 08:36
PROVIDERS: PCP Internal Medicine; Visit Provider Internal Medicine
DX: I10 Essential (primary) hypertension (principal); E78.2 Mixed hyperlipidemia; D64.9 Anemia, unspecified; E87.6 Hypokalemia
CPT/HCPCS: 36415; 80053; 80061; 82043; 83735; 85025; 85046

== ENCOUNTER 2025-04-06 07:54 | Outpatient (CLI) | payer OTHER, SELFPAY ==
[2025-04-06 11:52] LABS: Prostate Specific Antigen 2.6 ng/mL (< OR = 4.0)
== END 2025-04-06 07:55 | disposition home or self-care (01) ==
LOC: ANHGOSHLAB 07:55
PROVIDERS: PCP Internal Medicine; Visit Provider Internal Medicine
DX: Z12.5 Encounter for screening for malignant neoplasm of prostate (principal)
CPT/HCPCS: 36415; 84153; G0103

== ENCOUNTER 2025-04-14 07:57 | Outpatient (CLI) | payer OTHER, SELFPAY ==
--- OUTSIDE RECORDS SUMMARY | 2025-04-14 08:03 | XMS_ITS | Clinical Summary ---
Author Organization [facility] Address [address] [place] [address] Care Team Providers Care Wringer Machine Operator Name Role Phone Dilan Johnson DO Primary Care Provider Source Comments [facility] [employer],non-owned Affiliates and Associated Physician Practices is amultiple site organization consisting of ambulatory clinics and hospital sitesin [place], [place], [place] and [place]. This disclosure is being madepursuant to the Care Everywhere program and may not contain all information available regarding this patient. Last updated 18.[facility] [employer] Allergies No known active allergies Medications * Be aware that medications may not be up to date on this document. Alwaysverify current medications with the patient. No known medications Immunizations Immunization Administration Dates Next Due FLU VACCINE QUAD IIV4 PF ID 01/15/2016 INFLUENZA VACCINE, QUADR. (F LUZONE; FLULAVAL; FLUARIX; AFLURIA QUADRIVALENT; 6MO+), 0.5 ML (IIV4) 01/22/2017 Social History Tobacco Use Types Packs/Day Years Used Date Smoking Tobacco: Never Assessed Sex and Gender Information Value Date Recorded Sex Assigned at Not on file Legal Sex Male 11:33 AM CDT Gender Identity Not on file Sexual Orientation Not on file Plan of Treatment Health Maintenance Due Date Last Done Comments COLOGUARD (AGES 45-75) - COL ON CA SCREENING 1958 COLON MONITORING 1958 COLONOSCOPY - COLON CA SCREENING 1958 CT COLONOGRAPHY - COLON CA SCREENING 1958 Colorectal Cancer Screening 1958 FIT - COLON CA SCREENING 1958 FLEX SIG - COLON CA SCREENING 1958 LIPID TESTING 1958 HEPATITIS C SCREENING 01/07/1976 DTAP/TDAP/TD VACCINES (1 - Tdap) 1977 PNEUMOCOCCAL VACCINE 50+ (1 of 1 - PCV) 01/12/2008 ZOSTER VACCINE (1 of 2) 01/12/2008 DEPRESSION SCREENING 04/23/2024 COVID-19 VACCINE (1 - 2024-2 6 season) 2024 INFLUENZA VACCINE (#1) 2024 7, 01/15/2016 Respiratory Syncytial Virus (RSV) Vaccine Pt: or over 60 yrs (1 - 1-dose 75+ series) 2033 HEPATITIS B VACCINE Aged Out No longe r eligible based on patient's age to complete this topic HIB VACCINE Aged Out No longer eligi ble based on patient's age to complete this topic HPV VACCINE Aged Out No longer eligi ble based on patient's age to complete this topic MENINGOCOCCAL (Group B) VACCINE SHARED DECISION-MAKING Aged Out No longer eligible based on patient's age to complete this topic MENINGOCOCCAL GROUPS A/C/Y/W VACCINE Aged Out No longer eligible b ased on patient's age to complete this topic Insurance [employer] SELF PAY NO INSURANCE Member Subscriber Plan / Payer (Ef fective for All Dates) Name:Hilario Terrazas Member ID:Not on file Relation to Subscriber:Not on file Name:HILARIO TERRAZAS Subscriber ID:Not on file (Home) Address: [address] [place] [id number] Payer ID:Not on file Group ID:Not on file Type:Self Pay Address: [place], [place] Care Teams Wringer Machine Operator Relationship Specialty Start Date End Date Dilan Johnson DO PCP - General Internal Medicine 01/15/16
--- OUTSIDE RECORDS SUMMARY | 2025-04-14 08:03 | XMS_ITS | Data Portability ---
Author Organization [facility] [employer], Main Office Address [address] [place] [address] Care Team Providers Care Office Technology Instructor Name Role Phone TIFF TRIPATHI Primary Care Provider [phone] TIFF TRIPATHI Referring Provider Assessment Encounter Date Assessment Date Assessment LastModified by Organization Details LastModified Time 06/26/2022 06/26/2022 Patient is statu s post total knee arthroplasty revision left. Overall is doing fine he got a bit of swelling just a tiny little bit of drainage. We will place him on Keflex for a week just to protect him if he has any changes or problems he will call anticipate follow-up in a month we will get new x-rays at that point he can advance weight-bearing as tolerated. I told him if the drainage persists for some reason to call me immediately. [email or web address] Not available 06/26/2022 10:23:45 07/24/2022 07/24/2022 Patient is statu s post total knee arthroplasty left. His incision is clean has got good motion strength neurologically he is intact overall is doing fine. He has had a nice response to surgical intervention and can be dismissed at this point. I would like see him back in a year for x-rays if he has any changes or problems he will call discussed. [email or web address] Not available 07/24/2022 10:30:57 Plan of Treatment Reminders Order Date Submit Date Provider Last Modified By Organization Details Last Modified Time Details Appointments None recorded. Lab None recorded. Referral None recorded. Procedures None recorded. Surgeries None recorded. Imaging XR, knee, 3 view 2022 023 [email or web address] [facility] [place], [address], [place], [address], 3 10:33:44 Medication Orders cephalexin 500 mg capsule 2022 023 [email or web address] [address] [facility], [address], [place], [address], 3 10:22:26 Patient TargetsNo targets recorded. Patient InstructionsNo instructions recorded. Reason for Referral None Reported. Results Created Date Observation Date Name Description Value Unit Range Abnormal Flag Note LastModifiedBy Organization Detail LastModifiedTime 02/24/20 22 XR, knee No observ ation record ed. [id number] [facility] [place] [address], [place], [address], 06/21/2022 08:13:22 03/17/20 22 03/15/2022 CT, knee, w/o contr ast No observ ation record ed. [id number], [place], [address], 06/21/2022 08:13:22 03/18/20 22 03/17/2022 NM, bone scan, 3-pha se No observ ation record ed. [id number] [place] [address] [address], [place], [address], 06/21/2022 08:13:22 04/12/20 22 04/12/2022 aspir ation /biop sy, ultra sound guide d (PROC ) No observ ation record ed. [id number] [facility] [address], [place], [address], 06/21/2022 08:13:22 06/14/19 23 06/14/2022 XR, knee No observ ation record ed. [id number] [place] [address] [address], [place], [address], 06/21/2022 08:13:22 06/14/19 23 06/14/2022 XR, knee No observ ation record ed. [id number] [place] [address] [address], [place], [address], 06/21/2022 08:13:22 07/25/19 23 XR, knee, 3 view No observ ation record ed. [email or web address] [facility] [place] [address] [facility] [address], [place], [address], 07/24/2022 10:31:10 Result Notes None recorded. Problems Name Problem SNOMED Code Status Onset Date Resolution Date Notes Provider Name and Address Organization Details Recorded Time Loosening of total knee replacemen t 876011495 Active 2021 Not Available [facility] 3 08:09:31 Pain of bilateral knee joints 9179367453538 04 Active 2021 Not Available [facility] 3 08:09:31 Pain of left knee joint 6193441802040 07 Active 2022 PARVIZ Rub[place], [place] - [facility] 3 09:58:16 Problem Notes None recorded. Procedures Surgical History Date Name Laterality Status Provider Name and Address Organization Details Recorded Time arthroplasty of knee completed Not Available [facility] 06/21/2022 08:06:15 Imaging Results None recorded. Procedure Notes None recorded. Medical Equipment None Reported. Medications Name Sig Start Date Stop Date Status Note LastModified by Organization Details LastModified Time atorvastatin 20 mg tablet TAKE 1 TABLET BY MOUTH ONCE DAILY active Not Available Not Available No t Available lisinopril 20 mg-hydrochlo rothiazide 12.5 mg tablet TAKE 1 TABLET BY MOUTH TWICE DAILY active Not Available Not Available No t Available tramadol 50 mg tablet TAKE 1 TABLET BY MOUTH EVERY 6 HOURS NEEDED active Not Available Not Available No t Available amlodipine 10 mg tablet TAKE 1 TABLET BY MOUTH ONCE DAILY active Not Available Not Available No t Available hydrocodone 7.5 mg-acetamino phen 325 mg tablet Take by oral route for 7 days. 2022 active Not Available Not Available Not Avai lable cephalexin 500 mg capsule TAKE 1 CAPSULE BY MOUTH EVERY 6 HOURS active Not Available Not Available No t Available phenobarbita l 30 mg tablet 02/23 completed Not Available Not Available Not Available phenobarbita l 32.4 mg tablet TAKE 1 TABLET BY MOUTH ONCE DAILY active Not Available Not Available No t Available nebivolol 5 mg tablet TAKE 1 TABLET BY MOUTH ONCE DAILY 02/23 completed Not Available Not Available Not Available Xarelto 10 mg tablet TAKE 1 TABLET BY MOUTH ONCE DAILY active Not Available Not Available No t Available Vitals Date Recorded Body height Provider Name an d Address Organization Details Last Updated DateTime 06/26/2022 175.26 cm Layla Gamboa Carol [facility] [employer] [facility] 06/26/2022 09:57:15 Date Recorded Body height Provider Name an d Address Organization Details Last Updated DateTime 07/24/2022 175.26 cm Layla Gamboa [facility] [employer] [facility] 07/24/2022 09:57:40 Date Recorded Body mass index (BMI) Body height Body weight Provider Name and Address Organization Details Last Updated DateTime 02/23/2022 31.6 kg/m2 177.8 cm 58932.32 g Not Available [facility] 06/21/2022 08:08:40 Date Recorded Body mass index (BMI) Body height Body weight Provider Name and Address Organization Details Last Updated DateTime 03/30/2022 31.6 kg/m2 177.8 cm 22875.32 g Not Available [facility] 06/21/2022 08:08:40 Date Recorded Body mass index (BMI) Body height Body weight Provider Name and Address Organization Details Last Updated DateTime 04/20/2022 32.9 kg/m2 175.26 cm 403977.1 g Not Available [facility] 06/21/2022 08:08:40 Social History Question Answer Notes LastModified by [employer] [place] Details LastModified Time Tobacco Smoking Status Never Smoker Not Available [facility] 06/21/2022 08:06:10 What Was The Date Of Your Most Recent Tobacco Screening? 02/23/2022 [id number] Information not available 06/21/2022 Sex: Unknown Functional Status Question Answer Note LastModified by [employer] [place] Details LastModified Time What is your level of alcohol consumption? None [id number] Information not available 06/21/2022 Mental Status None recorded. Family History Relationship Description Onset Age of this Age Resolved Age Notes LastModified by Organization Details LastModified Time Father Hypertensive disorder [id number] Not available 06/21/2022 08:06:17 Mother Hypertensive disorder [id number] Not available 06/21/2022 08:06:17 Medical History Condition Response HYPERTENSION Y Past Encounters Encounter ID Performer Location Encounter Start Date Encounter Closed Date Diagnosis/Indication Diagnosis SNOMED-CT Code Diagnosis ICD10 Code Diagnosis IMO Codes Diagnosis Note [id number] Wilver Downey MD [facility] [place] [address] [place] [address] 02/23/2022 00:00:00 02/23/2022 10:11:19 [id number] Wilver Downey MD [facility] [place] [address] [place] [address] 03/30/2022 00:00:00 03/30/2022 09:22:57 [id number] Wilver Downey MD [facility] [place] [address] [facility] [address] [place] [address] 04/20/2022 00:00:00 04/20/2022 09:09:07 [id number] Wilver Downey MD [facility] [place] [address] [place] [address] 06/26/2022 09:53:41 06/26/2022 10:44:00 Loosening of total knee replacement 102869285 T84.033A [id number] Wilver Downey MD [facility] [place] [address] [facility] [address] [place] [address] 07/24/2022 09:49:25 07/24/2022 10:33:44 Loosening of total knee replacement 906510097 T84.033A Health Concerns Section Related Observation LastModified by Organization Detai ls LastModified Time None Recorded Concern Status LastModified by Organization Details LastModified Time None Recorded Advance Directives Directive None Recorded Payers Insurance Date Sequence Insurance Name Policy Number Policy Hughes Covered Member ID Hughes Member ID Guarantor Name 07/31/2022 1 [employer] - OPEN ACCESS Hilario Terrazas [id number] Hilario Terrazas Notes Date Note Type Note Provider Name and Address Organization Details Recorded Time 06/26/2022 text/html Patient returns status post revision total knee left. His incision is clean he has got just a touch of drainage inferiorly as I pulled the john out. Wilver Downey MD [address] [address], [place], [address], [email or web address] [facility] 06/26/2022 10:24:00 07/24/2022 text/html Patient returns status post total knee arthroplasty pain is resolving he is comfortable and doing well. Wilver Downey MD [address] [facility] [address], [place], [address], [employer] 07/24/2022 10:31:32
--- OUTSIDE RECORDS SUMMARY | 2025-04-14 08:03 | XMS_ITS | Clinical Summary ---
Author Organization [facility] Address [address] [place] [address] Care Team Providers Care Digital Marketing Consultant Name Role Phone Dilan Johnson DO Primary Care Provider [phone] Allergies No known active allergies Medications amLODIPine (NORVASC) 10 mg tablet Take 1 tablet (10 mg total) by mouth daily 10/20/2019 Active atorvastatin (LIPITOR) 20 mg tablet Take 1 tablet (20 mg total) by mouth daily 10/20/2019 Active lisinopril-hydro CHLOROthiazide (ZESTORETIC) 20-12.5 mg per tablet Take 1 tablet by mouth 2 (two) times a day 12/08/2019 Active Bystolic 5 mg tablet Take 1 tablet (5 mg total) by mouth daily 10/20/2020 Active PHENobarbitaL 32.4 mg tabletIndication s:Nonintractable generalized idiopathic epilepsy without status epilepticus (HCC) Take 1 tablet (32.4 mg total) by mouth daily 90 tablet 1 12/18/2024 Active Active Problems Problem Noted Date Diagnosed Date Paresthesias 10/14/2021 Chronic pain of left knee 12/09/2020 Assessment & Plan (12/09/2020 9:01 AM CDT): Patient's cites having chronic left knee pain. He inquired as to of potential referral to an orthopedist. He was provided names of local orthopedists to consider and if the physician referral is necessary I told him I could provide it. Nonintractable generalized i diopathic epilepsy without status epilepticus 12/11/2019 Assessment & Plan (12/09/2020 9:00 AM CDT): Patient continues at this time on phenobarbital 32.4 mg daily. He has had no seizures over the past year and enjoyed good tolerability. I have renewed his phenobarbital as currently scheduled and will obtain a phenobarbital trough level for medication level monitoring. He will follow-up in neurology clinic in 1 year. Assessment & Plan (12/11/2019 8:52 AM CDT): Patient lifelong history of generalized epilepsy is currently controlled with phenobarbital 32.4 mg daily with his last seizure being 14 years ago. He has no tolerability with medication. Phenobarbital 32.4 mg daily has been renewed. I will obtain a phenobarbital level for medical monitoring. I will see him back in 1 year. Medication monitoring encounter 12/11/2019 Assessment & Plan (12/11/2019 8:52 AM CDT): I will obtain a phenobarbital level for medical monitoring. Surgical History Surgery Date Site/Laterality Comments KNEE SURGERY Medical History Medical History Date Comments Seizures (HCC) Hypertension High cholesterol Family History Medical History Relation Name Comments Hypertension Father Hypertension Mother Relation Name Status Comments Father Mother Social History Tobacco Use Types Packs/Day Years Used Date Smoking Tobacco: Never Smokeless Tobacco: Never Personal Safety Answer Date Recorded Getting School Help Needed Not on file 05/02 Sex and Gender Information Value Date Recorded Sex Assigned at Not on file Legal Sex Male 1:50 AM [employer] Gender Identity Not on file Sexual Orientation Not on file Last Filed Vital Signs Vital Sign Reading Time Taken Comments Blood Pressure 136/76 12/20/2023 1:04 PM CDT Pulse 61 12/20/2023 1:04 PM CDT Temperature 36.7 C (98 F) 10/13/2021 1:36 PM CDT Respiratory Rate - - Oxygen Saturation - - Inhaled Oxygen Concentration - - Weight 101.6 kg (224 lb) 12/20/2023 1:04 PM CDT Height 177.8 cm (5' 10) 12/20/2023 1:04 PM CDT Body Mass Index 32.14 12/20/2023 1:04 PM CDT Plan of Treatment Health Maintenance Due Date Last Done Comments Colon Cancer Screening-Colonoscopy 1960 Depression Screening 1960 Fall Risk Assessment 1960 Hepatitis C Screening 1960 Prostate Cancer Screening-PSA 1960 DTaP/Tdap/Td Vaccine (1 - Tdap) 1969 Hepatitis B Screening 01/12/1976 Pneumococcal vaccine 65+ (1 of 1 - PCV) 01/12/2008 Zoster Vaccine (1 of 2) 01/12/2008 Abdominal Aortic Aneurysm (A AA) Screen 2023 Well Visit 65+ 2023 Influenza Vaccine (#1) 2024 7, 01/15/2016, 01/16/2015, Additional history exists [facility] [id number] [facility] [id number] Care Teams Digital Marketing Consultant Relationship Specialty Start Date End Date Dilan Johnson DO PCP - General 09/06/10
[2025-04-14 13:23] LABS: Hematocrit 41.2 % (42.0-52.0); Hemoglobin 13.3 g/dL (14.0-18.0); Immature Granulocyte Percent A 0.4 % (0-0.5); Lymphocytes Absolute Auto 2.51 K/mm3 (0.9-3.2); Mean Corpuscular HGB Conc 32.3 g/dl (32-36); Mean Corpuscular Hemoglobin 28.5 pg (26-34); Mean Corpuscular Volume 88.4 fl (80-100); Nucleated Red Blood Cells Absolute Auto 0.000 K/mm3 (0.0-0.012); Nucleated Red Blood Cells Perc 0.0 % (0.0-0.2); Platelet Count Result 325 k/mm3 (150-375); Red Blood Count 4.66 M/mm3 (4.6-6.20); White Blood Count 8.3 K/mm3 (4.5-10.0)
[2025-04-14 13:38] LABS: Alanine Aminotransferase 27 U/L (6-50); Albumin Level 3.7 g/dL (3.5-5.1); Alkaline Phosphatase 97 U/L (38-126); Anion Gap 7 mmol/L (4-12); Aspartate Amino Transferase 49 U/L (17-59); Bilirubin,Total 0.4 mg/dL (0.2-1.3); Blood Urea Nitrogen 12 mg/dL (9-20); Calcium 8.7 mg/dL (8.4-10.2); Carbon Dioxide 29 mmol/L (22-30); Chloride 105 mmol/L (98-107); Cholesterol 186 mg/dL (0-200); Estimated Glomerular Filt Rate > 60; Glucose 92 mg/dL (65-110); HDL Direct 37 mg/dL; Magnesium 2.3 mg/dL (1.6-2.3); Potassium 3.6 mmol/L (3.4-5.0); Sodium 141 mmol/L (137-145); Total Protein 6.8 g/dL (6.3-8.2); Triglycerides 105 mg/dL (<150)
[2025-04-14 14:07] LABS: Ferritin 22.10 ng/mL (11.1-264)
[2025-04-14 14:08] LABS: Hepatitis B Surface Antigen Negative (Negative)
[2025-04-14 14:15] LABS: HIV 1/2 Ab P24 Ag Result Negative (Negative)
[2025-04-14 14:16] LABS: Prostate Specific Antigen 3.2 ng/mL (< OR = 4.0); Thyroid Stimulating Hormone 1.690 uIU/mL (0.465-4.680)
[2025-04-14 14:52] LABS: Vitamin B12 359.0 pg/mL (239-931)
[2025-04-15 07:08] LABS: GGT 34 IU/L (0-65)
[2025-04-21 20:08] LABS: Renin Activity, Plasma 0.823 ng/mL/hr (0.167-5.380)
== END 2025-04-14 07:58 | disposition home or self-care (01) ==
LOC: ANHGOSHLAB 07:58
PROVIDERS: PCP Internal Medicine; Visit Provider Internal Medicine
DX: Z12.5 Encounter for screening for malignant neoplasm of prostate (principal); I15.9 Secondary hypertension, unspecified; E78.2 Mixed hyperlipidemia; R74.8 Abnormal levels of other serum enzymes; E87.6 Hypokalemia; D64.9 Anemia, unspecified; R97.20 Elevated prostate specific antigen [PSA]
CPT/HCPCS: 36415; 80053; 80061; 82607; 82728; 82746; 82977; 83735; 84153; 84244; 84443; 85025; 86703; 86803; 87340; G0432

== ENCOUNTER 2025-04-21 09:18 | Outpatient (CLI) | payer OTHER, SELFPAY ==
--- NOTE | ~2025-04-21 | US_ITS ---
EXAMINATION: US retroperitoneal duplex ltd DATE: 04/21/2025 17:15 [employer] INDICATION: Secondary hypertension. TECHNIQUE: Sonographic imaging of the kidneys was performed with a 3.5 MHz transducer. Retroperitoneal duplex sonogram of the renal arteries also obtained. FINDINGS: No focal flow abnormalities are seen in the renal arteries on color Doppler. The peak systolic velocity ranges of the right and left renal arteries and aorta are 96 cm per second, 69 cm per second, and 106 cm per second, respectively. The velocities and renal to aortic ratios are within normal limits. IMPRESSION: 1. No Doppler evidence of renal artery stenosis. Reviewed, dictated and finalized at location O. [employer]
== END 2025-04-21 09:19 | disposition home or self-care (01) ==
LOC: MICIMG 09:18
PROVIDERS: PCP Internal Medicine; Visit Provider Internal Medicine
DX: I15.9 Secondary hypertension, unspecified (principal)
CPT/HCPCS: 93976